=== PATIENT | female | born 1975 | race Caucasian/White ===

== ENCOUNTER → 2018-11-23 | Emergency (ER) | payer OTHER, MEDICAID ==
[2018-11-23] MEDS: predniSONE 20 MG TAB PO (15:24)
[2018-11-23] MEDS: IPRATROPIUM (NEB) 0.5 MG/2.5 ML AMP INH (15:36)
[2018-11-23] MEDS: ALBUTEROL 0.5% (NEB) 2.5 MG/0.5 ML AMP INH (15:36)
== END | disposition home or self-care (01) ==
LOC: FTE 14:51
DX: J45.41 Moderate persistent asthma with (acute) exacerbation (principal)
CPT/HCPCS: 71045; 94644; 99283-25